=== PATIENT | female | born 1970 | race Caucasian/White ===

== ENCOUNTER 2016-09-20 20:09 | Emergency (ER) | payer BC ==
[~2016-09-20] VITALS: Ht 162.5 cm; Wt 104.3 kg
[~2016-09-20 20:09] MED LIST: 'PARAFON FORTE500 M1 PO; NAPROSYN500 MG PO
[2016-09-20] MEDS ORDERED: ESCITALOPRAM OX10 MG PO (20:30)
== END 2016-09-20 22:54 | disposition home or self-care (01) ==
LOC: ED 20:09
DX: M79.671 Pain in right foot (principal); F17.200 Nicotine dependence, unspecified, uncomplicated; Z79.899 Other long term (current) drug therapy

== ENCOUNTER 2017-04-24 15:55 | Emergency (ER) | payer BC ==
[~2017-04-24] VITALS: Wt 108.9 kg
[~2017-04-24 15:55] MED LIST changes: +ESCITALOPRAM OX10 MG PO
[2017-04-24] MEDS ORDERED: CYCLOBENZAPRINE10 MG PO (19:22)
[2017-04-24] MEDS ORDERED: NAPROSYN500 MG PO (19:22)
== END 2017-04-24 19:25 | disposition home or self-care (01) ==
LOC: ED 15:55
DX: M25.511 Pain in right shoulder (principal); F10.10 Alcohol abuse, uncomplicated; Z79.899 Other long term (current) drug therapy; W18.39XA Other fall on same level, initial encounter; Y93.89 Activity, other specified; Y92.89 Other specified places as the place of occurrence of the external cause; Y99.8 Other external cause status

== ENCOUNTER 2017-09-26 09:27 | Emergency (ER) | payer BC ==
[~2017-09-26] VITALS: Ht 162.5 cm; Wt 1013.8 kg
[~2017-09-26 09:27] MED LIST changes: +CYCLOBENZAPRINE10 MG PO
[2017-09-26] MEDS ORDERED: PREMPRO 0.3 MG1 EACH PO (09:33)
== END 2017-09-26 11:02 | disposition home or self-care (01) ==
LOC: ED 09:27
DX: S86.911A Strain of unspecified muscle(s) and tendon(s) at lower leg level, right leg, initial encounter (principal); F17.200 Nicotine dependence, unspecified, uncomplicated; Z79.899 Other long term (current) drug therapy; X58.XXXA Exposure to other specified factors, initial encounter; Y93.89 Activity, other specified; Y92.89 Other specified places as the place of occurrence of the external cause; Y99.8 Other external cause status

== ENCOUNTER → 2017-12-05 | Outpatient (CLI) | payer BC ==
[~2017-12-05] MED LIST changes: +PREMPRO 0.3 MG1 EACH PO
== END | disposition home or self-care (01) ==
LOC: LAB 09:51
DX: L02.91 Cutaneous abscess, unspecified (principal)

== ENCOUNTER → 2018-06-28 | Outpatient (CLI) | payer BC ==
--- NOTE | ~2018-06-28 | EKG ---
[place], [place] ELECTROCARDIOGRAM REPORT NAME: HERNAN SNIDER UNIT #: [id number] ROOM: DOCTOR: EPIPHANY DRAFT REPORT BIRTHDATE: [birth year] [facility] [place] Test Date: 2018-06-28 Test Time: 16:25:36 Pat Name: HERNAN SNIDER Department: OPF Room: Gender: F [employer] Operator: Willian Noel : 1970 Requested By: ELAINE JUNIOR Order Number: [id number] Reading MD: Rakesh Moreno MD Measurements Intervals [place] Rate: 71 P: 59 VA: 144 QRS: -30 QRSD: 105 T: 50 QT: 408 QTc: 444 Interpretive Statements Sinus rhythm Electronically Signed On 06-28-2018 18:33:10 PST by Rakesh Moreno MD CM:EKGRPT:ELECTROCARDIOGRAM REPORT [id number] ELAINE JUNIOR EPIPHSHARRI DRAFT REPORT ELAINE JUNIOR
[2018-06-28 16:14] LABS: BASO # 0.1 10*3/uL (0.0-0.1); BASO % 0.9 % (0.0-1.0); EOS # 0.3 10*3/uL (0.0-0.4); EOS % 4.1 % (1.0-4.0); HEMOGLOBIN 13.2 g/dl (12.0-16.0); LYMPH # 1.9 10*3/uL (1.3-4.4); MEAN CELL VOLUME 93.5 fl (81.0-99.0); MEAN CORPUSCULAR HGB 29.4 pg (27.0-31.0); MEAN CORPUSCULAR HGB CONC 31.4 g/dl (33.0-37.0); MEAN PLATELET VOLUME 10.4 fl (9.6-12.3); MONO # 0.5 10*3/uL (0.1-1.0); MONO % 7.7 % (3.0-9.0); NEUT # 3.9 10*3/uL (2.3-7.9); PLATELET COUNT AUTOMATED 252 10*3/uL (130-400); RED BLOOD COUNT 4.49 10*6/uL (4.10-5.10); RED CELL DISTRI WIDTH 12.7 % (0-14.5); WHITE BLOOD COUNT 6.6 10*3/uL (4.8-10.8)
[2018-06-28 16:47] LABS: ALBUMIN 3.9 gm/dl (3.1-4.5); ALKALINE PHOSPHATASE 111 U/L (45-117); BUN 20 mg/dl (7-24); CHLORIDE 106 mmol/L (98-107); CHOLESTEROL 156 mg/dL (<200); CREATININE 0.86 mg/dL (0.55-1.02); HDL CHOLESTEROL 42 mg/dl (40-60); LDL CHOLESTEROL 102 mg/dL (9-159); POTASSIUM 4.2 mmol/L (3.5-5.1); SGOT/AST 18 IU/L (3-35); SGPT/ALT 49 U/L (12-78); SODIUM 139 mmol/L (136-145); TOTAL PROTEIN 7.8 gm/dL (6.4-8.2); TRIGLYCERIDES 58 mg/dl (<150); VLDL CHOLESTEROL 12 mg/dL (6-40)
[2018-06-28 16:54] LABS: THYROID STIM HORMONE (HS) 0.584 uIU/ml (0.358-4.75)
== END | disposition home or self-care (01) ==
LOC: LAB 15:06
PROVIDERS: Nurse Practitioner
DX: I10 Essential (primary) hypertension (principal); R06.02 Shortness of breath

== ENCOUNTER 2019-02-06 07:19 | Emergency (ER) | payer OTHER, BC ==
[~2019-02-06] VITALS: Ht 157.4 cm; Wt 103.4 kg
== END 2019-02-06 10:48 | disposition home or self-care (01) ==
LOC: ED 07:19
DX: S80.852A Superficial foreign body, left lower leg, initial encounter (principal); Z98.890 Other specified postprocedural states; Z90.710 Acquired absence of both cervix and uterus; Z90.49 Acquired absence of other specified parts of digestive tract; Z79.899 Other long term (current) drug therapy; X58.XXXA Exposure to other specified factors, initial encounter; Y93.89 Activity, other specified; Y92.69 Other specified industrial and construction area as the place of occurrence of the external cause; Y99.9 Unspecified external cause status

== ENCOUNTER 2020-08-28 14:04 | Emergency (ER) | payer BC ==
[~2020-08-28] VITALS: Ht 162.5 cm; Wt 86.2 kg
[2020-08-28] MEDS ORDERED: SEPTDS PO (16:28)
[2020-08-28] MEDS ORDERED: CEPHALEXIN500 M1 PO (16:28)
[2020-08-28] MEDS ORDERED: Motrin,Rufen800 MG PO (16:50)
== END 2020-08-28 17:03 | disposition home or self-care (01) ==
LOC: ED 14:04
DX: L03.011 Cellulitis of right finger (principal); F32.9 Major depressive disorder, single episode, unspecified; F17.200 Nicotine dependence, unspecified, uncomplicated; Z79.899 Other long term (current) drug therapy; Z90.711 Acquired absence of uterus with remaining cervical stump; Z90.49 Acquired absence of other specified parts of digestive tract

== ENCOUNTER 2020-08-31 12:20 | Observation (INO) | payer BC ==
[~2020-08-31] VITALS: Ht 162.5 cm; Wt 88.9 kg
[~2020-08-31 12:20] MED LIST changes: +CEPHALEXIN500 M1 PO; +Motrin,Rufen800 MG PO; +SEPTDS PO
[2020-08-31 12:36] VITALS: BP 122/83
[2020-08-31 13:37] LABS: BASO # 0.1 10*3/uL (0.0-0.1); BASO % 0.8 % (0.0-1.0); EOS # 0.2 10*3/uL (0.0-0.4); HEMATOCRIT 47.4 % (37.0-47.0); LYMPH # 1.4 10*3/uL (1.3-4.4); LYMPH % 19.2 % (27.0-41.0); MEAN CELL VOLUME 92.4 fl (81.0-99.0); MEAN CORPUSCULAR HGB CONC 31.4 g/dl (33.0-37.0); MEAN PLATELET VOLUME 9.9 fl (9.6-12.3); MONO # 0.5 10*3/uL (0.1-1.0); MONO % 7.3 % (3.0-9.0); NEUT # 5.2 10*3/uL (2.3-7.9); NEUT % 69.4 % (47.0-73.0); PLATELET COUNT AUTOMATED 332 10*3/uL (130-400); RED BLOOD COUNT 5.13 10*6/uL (4.10-5.10); RED CELL DISTRI WIDTH 12.6 % (0-14.5); WHITE BLOOD COUNT 7.4 10*3/uL (4.8-10.8)
[2020-08-31 13:53] LABS: ALBUMIN 3.9 gm/dl (3.1-4.5); ALKALINE PHOSPHATASE 134 U/L (45-117); BUN 17 mg/dl (7-24); CHLORIDE 104 mmol/L (98-107); CREATININE 0.96 mg/dL (0.55-1.02); POTASSIUM 4.8 mmol/L (3.5-5.1); SGOT/AST 14 IU/L (3-35); SGPT/ALT 44 U/L (12-78); SODIUM 136 mmol/L (136-145); TOTAL PROTEIN 8.2 gm/dL (6.4-8.2)
[2020-08-31 17:21] VITALS: BP 124/83
[2020-08-31 20:00] VITALS: BP 100/50
[2020-08-31 20:15] VITALS: BP 142/79
[2020-09-01] VITALS (9 sets, daily range): BP systolic 108–165; BP diastolic 58–85
[2020-09-01 06:36] LABS: BASO # 0.1 10*3/uL (0.0-0.1); BASO % 0.9 % (0.0-1.0); EOS # 0.2 10*3/uL (0.0-0.4); EOS % 3.6 % (1.0-4.0); HEMATOCRIT 45.4 % (37.0-47.0); LYMPH # 1.4 10*3/uL (1.3-4.4); LYMPH % 21.7 % (27.0-41.0); MEAN CELL VOLUME 92.1 fl (81.0-99.0); MEAN CORPUSCULAR HGB CONC 31.5 g/dl (33.0-37.0); MEAN PLATELET VOLUME 10.1 fl (9.6-12.3); MONO # 0.5 10*3/uL (0.1-1.0); MONO % 8.5 % (3.0-9.0); NEUT # 4.1 10*3/uL (2.3-7.9); PLATELET COUNT AUTOMATED 282 10*3/uL (130-400); RED BLOOD COUNT 4.93 10*6/uL (4.10-5.10); RED CELL DISTRI WIDTH 12.8 % (0-14.5); WHITE BLOOD COUNT 6.4 10*3/uL (4.8-10.8)
[2020-09-01 07:05] LABS: BUN 16 mg/dl (7-24); CHLORIDE 107 mmol/L (98-107); CREATININE 1.01 mg/dL (0.55-1.02); POTASSIUM 4.4 mmol/L (3.5-5.1); SODIUM 137 mmol/L (136-145)
[2020-09-02] VITALS: BP 146/78
[2020-09-02 08:00] VITALS: BP 122/77
[2020-09-02] MEDS ORDERED: DOXYCYCLINE MO100 M1 PO (08:24)
[2020-09-02] MEDS ORDERED: HYDROCODONE-AC1 EAC1 PO (08:24)
[2020-09-03 12:07] LABS: ACID FAST SPEC PROCESSING Tissue Grinding (.)
== END 2020-09-02 10:10 | disposition home or self-care (01) ==
LOC: ED 12:20 → EDHOLD 13:17 → 5E 13:17 → EDHOLD 13:17 → 5E 19:41
PROVIDERS: Emergency Medicine; Internal Medicine; Surgery; ADMIT Internal Medicine; ATTEND Internal Medicine
DX: L03.011 Cellulitis of right finger (principal); E83.41 Hypermagnesemia; R73.9 Hyperglycemia, unspecified; F17.210 Nicotine dependence, cigarettes, uncomplicated; Z90.49 Acquired absence of other specified parts of digestive tract; Z90.710 Acquired absence of both cervix and uterus

== ENCOUNTER → 2020-09-08 | Outpatient (CLI) | payer BC ==
[~2020-09-08] MED LIST changes: +DOXYCYCLINE MO100 M1 PO; +HYDROCODONE-AC1 EAC1 PO
== END ==
LOC: WOUNDCARE 09:28
PROVIDERS: ATTEND Nurse Practitioner
DX: L02.511 Cutaneous abscess of right hand (principal); L03.011 Cellulitis of right finger; F17.200 Nicotine dependence, unspecified, uncomplicated; Z90.49 Acquired absence of other specified parts of digestive tract; Z90.710 Acquired absence of both cervix and uterus

== ENCOUNTER → 2020-09-15 | Outpatient (CLI) | payer BC | LOC: WOUNDCARE 00:34 | PROVIDERS: ATTEND Nurse Practitioner | DX: L02.511 Cutaneous abscess of right hand (principal); L03.011 Cellulitis of right finger; F17.200 Nicotine dependence, unspecified, uncomplicated; F12.10 Cannabis abuse, uncomplicated; Z72.89 Other problems related to lifestyle ==

== ENCOUNTER 2023-08-10 17:02 | Emergency (ER) | payer BC ==
[~2023-08-10] VITALS: Ht 162.5 cm; Wt 90.7 kg
[2023-08-10 18:15] LABS: BASO # 0.1 10*3/uL (0.0-0.1); BASO % 1.1 % (0.0-1.0); EOS # 0.2 10*3/uL (0.0-0.4); EOS % 3.5 % (1.0-4.0); HEMATOCRIT 43.1 % (37.0-47.0); LYMPH # 1.8 10*3/uL (1.3-4.4); LYMPH % 27.9 % (27.0-41.0); MEAN CELL VOLUME 93.3 fl (81.0-99.0); MEAN CORPUSCULAR HGB 28.8 pg (27.0-31.0); MEAN CORPUSCULAR HGB CONC 30.9 g/dl (33.0-37.0); MEAN PLATELET VOLUME 9.7 fl (9.6-12.3); MONO # 0.5 10*3/uL (0.1-1.0); MONO % 8.6 % (3.0-9.0); NEUT # 3.7 10*3/uL (2.3-7.9); NEUT % 58.6 % (47.0-73.0); PLATELET COUNT AUTOMATED 325 10*3/uL (130-400); RED BLOOD COUNT 4.62 10*6/uL (4.10-5.10); RED CELL DISTRI WIDTH 13.2 % (0-14.5); WHITE BLOOD COUNT 6.3 10*3/uL (4.8-10.8)
[2023-08-10 18:28] LABS: BUN 21 mg/dl (9-23); CHLORIDE 104 mmol/L (98-107); POTASSIUM 4.7 mmol/L (3.4-5.1)
[2023-08-10] MEDS ORDERED: PENICILLIN VK500 MG PO (19:09)
== END 2023-08-10 19:14 | disposition home or self-care (01) ==
LOC: ED 17:02
PROVIDERS: Nurse Practitioner
DX: K04.7 Periapical abscess without sinus (principal); F17.200 Nicotine dependence, unspecified, uncomplicated; Z79.2 Long term (current) use of antibiotics; Z79.899 Other long term (current) drug therapy; Z90.49 Acquired absence of other specified parts of digestive tract; Z90.711 Acquired absence of uterus with remaining cervical stump; Z98.890 Other specified postprocedural states

== ENCOUNTER 2023-10-02 07:12 | Emergency (ER) | payer BC ==
[~2023-10-02] VITALS: Ht 162.5 cm; Wt 90.7 kg
[~2023-10-02 07:12] MED LIST changes: +PENICILLIN VK500 MG PO
[2023-10-02] MEDS ORDERED: ACETAMINOPHEN 325 MG TAB PO ONE (07:35)
[2023-10-02] MEDS ORDERED: MELOXICAM15 MG PO (09:05)
== END 2023-10-02 09:20 | disposition home or self-care (01) ==
LOC: ED 07:12
DX: S92.332A Displaced fracture of third metatarsal bone, left foot, initial encounter for closed fracture (principal); F32.A Depression, unspecified; Z90.49 Acquired absence of other specified parts of digestive tract; Z90.710 Acquired absence of both cervix and uterus; Z98.890 Other specified postprocedural states; F17.200 Nicotine dependence, unspecified, uncomplicated; F12.90 Cannabis use, unspecified, uncomplicated; X50.1XXA Overexertion from prolonged static or awkward postures, initial encounter; Y93.89 Activity, other specified; Y92.89 Other specified places as the place of occurrence of the external cause; Y99.8 Other external cause status

== ENCOUNTER 2024-04-29 22:11 | Emergency (ER) | payer BC, OTHER ==
[~2024-04-29] VITALS: Ht 162.5 cm; Wt 90.7 kg
[~2024-04-29 22:11] MED LIST changes: +MELOXICAM15 MG PO
[2024-04-29] MEDS ORDERED: PENICILLIN VK500 MG PO (22:37)
[2024-04-29] MEDS ORDERED: PENICILLIN V POTASSIUM 500 MG TAB PO ONE (22:40)
== END 2024-04-29 22:50 | disposition home or self-care (01) ==
LOC: ED 22:11
DX: K04.7 Periapical abscess without sinus (principal); R22.0 Localized swelling, mass and lump, head; F32.A Depression, unspecified; F12.90 Cannabis use, unspecified, uncomplicated; F17.200 Nicotine dependence, unspecified, uncomplicated; Z90.49 Acquired absence of other specified parts of digestive tract; Z90.710 Acquired absence of both cervix and uterus